=== PATIENT | male | born 1965 | race Caucasian/White ===

== ENCOUNTER → 2018-07-23 11:19 | Outpatient (CLI) | payer MEDICARE, BC ==
[~2018-07-23] VITALS: Ht 185.4 cm; Wt 145.5 kg
--- NOTE | ~2018-07-23 | HEMODYNAMI ---
PATIENT:NEY AGUILAR MEDICAL RECORD: [id number] : 63 LOCATION:D.CAT ADMISSION DATE: 07/23/18 Generatedon:07/23/201813:16 Patient name: NEY AGUILAR Patient #: [id number] SSN: : 1965 Date of study: 07/23/2018 Page: Of Hemodynamic Procedure Report Patient Data Patient Demographics Procedure consent was obtained First Name: NEY Gender: Male Last Name: JEFF : 1965 [facility] Initial: DAYNE Age: 53 year(s) Patient #: [id number] Race: Unknown Additional ID: [id number] Contact details Address: [address] [place] [address] State: [place] City: [place] Zip code: [address] Past Medical History Allergies: No known allergies Admission Admission Data Admission Date: 07/23/2018 Admission Time: 11:19 Procedure Procedure Types Cath Procedure Diagnostic Procedure LHC LHC w/Coronaries Sedation Charges Moderate Sedation up to 15 minutes Procedure Description Procedure Date Procedure Date: 07/23/2018 Procedure Start Time: 13:02 Procedure End Time: 13:14 Procedure Staff Name Function Nick Washington MD Performing Physician Janae Mcginnis RT Monitor Jose A Byers RN Nurse Antwan Thomas RT Scrub Procedure Data Cath Procedure Fluoroscopy Diagnostic fluoroscopy Total fluoroscopy Time: 1.5 time: 1.5 min min Diagnostic fluoroscopy Total fluoroscopy dose: 715 dose: 715 mGy mGy Contrast Material Contrast Material Type Amount (ml) Isovue 300 66 Entry Location Entry Primary Successful Side Size Upsize Upsize Entry Closure Succes sful Closure Location (Fr) 1 (Fr) 2 (Fr) Remarks Device Remarks Femoral Right 5 Fr Exoseal artery Estimated blood loss: 5 ml Diagnostic catheters Device Type Used For End Catheter Placement MULTIPACK JL 4.0 5Fr Left Coronary catheter Angiography MULTIPACK 3DRC 5Fr Right Coronary catheter Angiography MULTIPACK Pigtail 5 Fr LV Angiography catheter Procedure Complications No complications Procedure Medications Medication Administration Route Dosage Oxygen etCO2 Nasal cannula 2 l/min Lidocaine 2% added to field 20 Heparin Flush Bag added to field 2 bags (1000units/500ml NS) 0.9% NaCl I.V. 100 ml/hr Versed I.V. 2 mg Fentanyl I.V. 100 mcg Fentanyl I.V. 50 mcg Versed I.V. 1 mg Hemodynamics Rest Heart Rate: 75 (bpm) Pressure Samples Time Site Value (mmHg) Purpose Heart Use Rate(bpm) 13:09 LV 129/21,37 EDP 90 13:09 LV 133/25,40 Snapshot 69 Gradients Valve Time Site Site Mean SEP/DFP Peak To Heart Use 1 2 (mmHg) (sec/min) Peak Rate (mmHg) (bpm) Aortic 13:10 LV AO 79 Snapshots Pre Cath Intra NCS Post Cath Vital Signs Time Heart Resp SPO2 etCO2 NIBP (mmHg) Rhythm Pain Sedation Rate (ipm) (%) (mmHg) Status Level (bpm) 12:47:52 77 18 98 0 135/86(110) NSR 0 (11) 10(A) , No pain 12:52:50 75 16 100 48.2 129/88(110) NSR 0 (11) 10(A) , No pain 12:57:44 72 12 95 34.6 142/102(116) NSR 0 (11) 10(A) , No pain 13:02:41 73 15 94 41.4 140/84(110) NSR 0 (11) 9(A) , No pain 13:07:39 79 17 96 45.1 136/75(120) NSR 0 (11) 9(A) , No pain 13:12:39 77 15 97 42.9 132/75(98) NSR 0 (11) 10(A) , No pain Medications Time Medication Route Dose Verified Delivered Reason Notes Eff ectiveness by by 12:56:04 Oxygen etCO2 2 Nick Buffie used for Nasal l/min Felix Byers RN procedure cannula 12:56:11 Lidocaine 2% added 20ml Nick Nick for local to vial Felix Washington MD anesthetic field 12:56:19 Heparin Flush added 2 Nick Nick used for Bag to bags Felix Washington MD procedure (1000units/500ml field NS) 12:56:29 0.9% NaCl I.V. 100 Nick Buffie Per ml/hr Felix Byers RN physician 12:56:46 Versed I.V. 2 mg Nick Buffie for Felix Byers RN sedation 12:56:52 Fentanyl I.V. 100 Nick Buffie for key Byers RN sedation 13:05:10 Versed I.V. 1 mg Nick Buffie for Felix Byers RN sedation 13:05:47 Fentanyl I.V. 50 Nick Eliseoie for mcg Felix Byers RN sedation Procedure Log Time Note 12:36:31 Jose A Byers RN sent for patient. Start room use. 12:36:32 Time tracking: Regular hours (M-F 7:00 - 5:00) 12:36:36 Plan of Care:Hemodynamics will remain stable., Cardiac rhythm will remain stable., Comfort level will be maintained., Respiratory function will remain adequate., Patient/ family verbilizes understanding of procedure., Procedure tolerated without complication., Recovers from procedure without complications.. 12:41:52 Patient received from Pre/Post Procedure Room to [facility] 1 Alert and oriented. Tansferred to table in Supine position. 12:41:53 Warm blankets applied, and hermila hugger turned on for patient comfort. 12:41:54 Correct patient and procedure confirmed by team. 12:41:55 Signed procedure consent form obtained from patient. 12:41:56 ECG and BP/O2 sat monitors applied to patient. 12:41:57 Full Disclosure recording started 12:46:36 Vital chart was started 12:51:12 Rhythm: sinus rhythm 12:51:22 H&P Date Dictated: 06/28/2018 Within 30 days and on chart., H&P Addendum completed by physician on day of procedure. (MUST COMPLETE FOR ALL OUTPATIENTS). 12:51:24 Pre-procedure instructions explained to patient. 12:51:24 Pre-op teaching completed and patient verbalized understanding. 12:51:26 Family in waiting room. 12:51:27 Patient NPO since Midnight. 12:51:37 Patient allergic to No known allergies 12:51:39 Is the patient allergic to Iodine/contrast media? No. 12:51:41 Is patient on blood thinner?Yes 12:51:57 ACC The patient was administered the following blood thiners within the last 24 hours: None 12:52:16 XARELTO LAST DOSE 07/20/18 12:52:18 Patient diabetic? Yes. 12:52:19 If diabetic: On Metformin? Yes 12:52:21 If on Metformin: Last Dose? 07/21/2018 12:52:24 Previous problem with sedation/anesthesia? No ? 12:52:25 Snore? Yes 12:52:26 Sleep apnea? No 12:52:28 Deviated septum? No 12:52:29 Opens mouth fully? Yes 12:52:29 Sticks out tongue? Yes 12:52:31 Airway obstruction? No ? 12:52:34 Dentures? No ? 12:52:36 Pre procedure: right dorsailis pedis pulse 2+ Normal; easily identifiable; not easily obliterated 12:52:38 Patient pain scale 0/10 ?. 12:52:48 IV patent on arrival in left forearm with 0.9% NaCl at [facility]. 12:52:50 Lab results completed and on chart. 12:52:54 Right groin area was prepped with chlora-prep and draped in sterile fashion 12:52:55 Alarms reviewed by R. N. 12:52:56 Sharps counted by scrub and verified by R.N. 12:52:58 Use device set Femoral Dx 12:52:59 ACIST Syringe (82925) opened to sterile field. 12:53:00 Bag Decanter (2002S) opened to sterile field. 12:53:00 Medline Cath Pack ([id number]) opened to sterile field. 12:53:01 DIAGNOSTIC WIRE .035 260cm J wire ([id number]) opened to sterile field. 12:53:04 ACIST Hand Control (48154) opened to sterile field. 12:53:04 ACIST Manifold (95897) opened to sterile field. 12:53:05 DIAGNOSTIC Multipack 5Fr catheter set ([id number]) opened to sterile field. 12:53:06 Tegaderm 4 x 4 (1626W) opened to sterile field. 12:53:07 SHEATH Prelude 5Fr 0.035 (TLT-2D-17-035) opened to sterile field. 12:53:46 Baseline sample Acquired. 12:53:54 Final Timeout: patient, procedure, and site verified with staff and physician. All members of the team are in agreement. 12:53:56 Right groin site verified by team. 12:53:58 Physical assessment completed. ASA score P 2 - A patient with mild systemic disease as per Nick Washington MD. 12:54:01 Sedation plan: IV Moderate Sedation Medication:Versed, Fentanyl 12:56:04 Oxygen 2 l/min etCO2 Nasal cannula was administered by Jose A Byers RN; used for procedure; 12:56:11 Lidocaine 2% 20ml vial added to field was administered by Nick Washington MD; for local anesthetic; 12:56:19 Heparin Flush Bag (1000units/500ml NS) 2 bags added to field was administered by Nick Washington MD; used for procedure; 12:56:29 0.9% NaCl 100 ml/hr I.V. was administered by Jose A Byers RN; Per physician; 12:56:46 Versed 2 mg I.V. was administered by Jose A Byers RN; for sedation; 12:56:52 Fentanyl 100 mcg I.V. was administered by Jose A Byers RN; for sedation; 12:58:53 Zero performed for pressure channel P1 13:01:11 Zero performed for pressure channel P1 13:02:15 Procedure started. 13:02:18 Local anesthetic to right femoral artery with Lidocaine 2% by Nick Washington MD.INITIAL ACCESS ONLY 13:03:48 A 5 Fr sheath was inserted into the Right Femoral artery 13:05:08 A MULTIPACK JL 4.0 5Fr catheter was advanced over the wire and used for Left Coronary Angiography. 13:05:10 Versed 1 mg I.V. was administered by Jose A Byers RN; for sedation; 13:05:47 Fentanyl 50 mcg I.V. was administered by Jose A Byers RN; for sedation; 13:09:02 Catheter removed. 13:09:10 A MULTIPACK 3DRC 5Fr catheter was advanced over the wire and used for Right Coronary Angiography. 13:09:23 Catheter removed. 13:09:57 A MULTIPACK Pigtail 5 Fr catheter was advanced over the wire and used for LV Angiography. 13:10:00 Injector settings: Ml/sec: 10, Volume: 20, 13:10:01 LV gram done using LUCERO 13:10:04 EF : 55 % 13:11:15 Sheath removed intact; hemostasis achieved with Exoseal to the Right Femoral artery. 13:11:17 Procedure ended.(Physican Out) 13:11:24 EXOSEAL 5Fr (EX500) opened to sterile field. 13:11:50 Fluoroscopy time 01.50 minutes. 13:11:54 Flurop Dose total: 715 13:11:54 Fluoroscopy dose: 715 mGy 13:11:58 Contrast amount:Isovue 300 66ml. 13:11:59 Sharps counted by scrub and verified by R.N. 13:12:50 Insertion/operative site no bleeding no hematoma. 13:12:54 Post-op/insertion site Right Femoral artery dressed using a 4 x 4 and Tegaderm. 13:12:57 Post right femoral artery:stable, clean and dry 13:13:12 Post Procedure Pulses reassessed and unchanged 13:13:14 Post-procedure physical assessment completed. ASA score P 2 - A patient with mild systemic disease as per Nick Washington MD. 13:13:16 Post procedure rhythm: unchanged. 13:13:18 Estimated blood loss: 5 ml 13:13:20 Post procedure instruction explained to patient.Patient verbalizes understanding. 13:13:20 Patient needs reinforcement of post procedure teaching. 13:13:26 Procedure Complication : No complications 13:13:27 See physician's report for complete and final results. 13:13:58 Procedure type changed to Cath procedure, Diagnostic procedure, LHC, LHC w/Coronaries, Sedation Charges, Moderate Sedation up to 15 minutes 13:14:17 Procedure and supply charges have been captured, reviewed, submitted and are correct. 13:14:23 Vital chart was stopped 13:14:25 Report given to ED. 13:14:28 Patient transfered to Pre/Post Procedure Room with Stretcher. 13:14:36 Procedure ended. 13:14:36 Full Disclosure recording stopped 13:14:39 End room use (Document Last) Device Usage Item Name Manufacture Quantity Catalog Number Hospital Part Current M inimal Lot# / Charge Number Stock Stock Serial# Code ACIST Syringe Acist 1 [id number] 317312 847548 [id number] 2 0 (60274) [employer] Bag Decanter Microtek 1 [id number] 88579 498693 5 () [employer] Medline Cath Cardinal 1 [id number] 202799 06691 482796 5 Miira ([id number]) DIAGNOSTIC WIRE St Mike 1 782823 815554 535615 676723 3 0 .035 260cm J wire (955397) ACIST Hand Acist 1 29324 810012 625938 397295 5 Control (58880) [employer] ACIST Manifold Acist 1 31342 628945 429698 538371 5 (70331) [employer] DIAGNOSTIC Cardinal 1 [id number] 003538 00136 756763 3 0 Multipack 5Fr Health catheter set ([id number]) Tegaderm 4 x 4 3M 1 1626W 299519 963014 621651 5 (1626W) SHEATH Prelude Merit 1 [id number] 318842 682503 021206 5 5Fr 0.035 Medical ([id number]) MULTIPACK JL Cardinal 1 869805 5 4.0 5Fr Health catheter MULTIPACK 3DRC Cardinal 1 [id number] 5 5Fr catheter Health MULTIPACK Cardinal 1 735455 5 Pigtail 5 Fr Health catheter EXOSEAL 5Fr Cardinal 1 EX500 911895 090095 575247 1 0 (EX500) Health Signature Audit [place] Stage Time Signature Unsigned Intra-Procedure 07/23/2018 Janae 1:15:58 PM Counts RT(R) Signatures Monitor : Janae Signature : Counts RT Date : Time : [address] [address]
[~2018-07-23 11:19] MED LIST: ACTOS15 MG PO; ASCORBIC ACID500 MG PO; EFFEXOR75 MG PO; GLIMEPIRIDE4 MG PO; GLUCOPHAGE500 MG PO; K-DUR20 MEQ PO; LASIX40 MG PO; LISINOPRIL10 MG PO; MORPHINE SULFAT15 M4 PO; NAPROSYN500 MG PO; NEURONTIN 300300 MG PO; NEXIUM40 MG PO; NITROSTAT0.4 MG SL; PRAVACHOL40 MG PO; XARELTO20 MG PO; ZOLOFT100 MG PO
[2018-07-23 12:06] VITALS: BP 116/82; Ht 185.4 cm; Wt 145.5 kg
[2018-07-23 12:37] LABS: BASOPHILS 0 % (0-2); EOSINOPHILS 0.2 % (0-7); HEMOGLOBIN 13.9 g/dL (13.5-17.5); IMMATURE GRANULOCYTES 0.6 % (0-5); LYMPHOCYTES 28.9 % (15-50); MCH 28.4 pg (26.0-34.0); MCHC 33.1 g/dL (31.0-37.0); MCV 85.9 fL (80.0-100.0); MEAN PLATELET VOLUME 9.1 fL (7.4-10.4); MONOCYTES 8.3 % (2-11); PLATELET COUNT 165 10x3/uL (130-400); RBC 4.89 10x6/uL (4.20-6.10); RDW 13.9 % (11.5-14.5); WBC 5.4 10x3/uL (4.8-10.8)
[2018-07-23 12:54] LABS: CALC OSMOLALITY 282 mosm/kg (275-300); CALCIUM 8.3 mg/dL (8.5-10.1); CARBON DIOXIDE 29.7 mmol/L (21.0-32.0); CHLORIDE - SERUM 102 mmol/L (98-107); CREATININE - SERUM 0.8 mg/dL (0.6-1.3); GLUCOSE 126 mg/dL (74-106); POTASSIUM - SERUM 4.1 mmol/L (3.5-5.1); SODIUM 140 mmol/L (136-145); UREA NITROGEN 18 mg/dL (7-18); eGFR NON AFRICAN AMERICAN > 90 mL/min (90-120)
== END | disposition home or self-care (01) ==
LOC: D.CATH 11:19
PROVIDERS: Internal Medicine Cardiovascular Disease
DX: I20.9 Angina pectoris, unspecified (principal); Z01.812 Encounter for preprocedural laboratory examination